=== PATIENT | male | born 1960 | race Caucasian/White ===

== ENCOUNTER 2022-11-24 07:38 | Outpatient (REF) | payer OTHER, SELFPAY ==
[2022-11-24 11:31] LABS: Appearance Urine Clear; Color Urine Yellow; Glucose Urine UA Negative (Negative); Leukocyte Esterase Urine Negative (Negative); Nitrite Urine Negative (Negative); Urine Blood Negative (Negative); Urine Ketones Negative (Negative); Urine Protein Negative (Neg-Trace)
[2022-11-24 11:34] LABS: Bacteria Urine None Seen (None Seen); Hyaline Casts Urine 0-2 /LPF (0-2); RBC Urine 0-2 /HPF (0-2); Squamous Epithelial Cell Urine 0-2 /HPF (0-2); WBC Urine 0-5 /HPF (0-5)
[2022-11-24 11:39] LABS: MANUAL DIFF FLAG NO
[2022-11-24 11:57] LABS: Basophils Percent Auto 0.8 % (0-2); Eosinophils Absolute Auto 0.6 X10*3/uL (0.0-0.4); Eosinophils Percent Auto 11.2 % (0-4); Hematocrit 43.2 % (42.0-52.0); Hemoglobin 14.4 g/dl (14.0-18.0); Lymphocytes Absolute Auto 1.2 X10*3/uL (1.2-4.9); Lymphocytes Percent Auto 24.3 % (20-40); Mean Corpuscular HGB Conc 33.3 g/dl (31.0-36.0); Mean Corpuscular Hemoglobin 30.6 pg (27.0-33.0); Mean Corpuscular Volume 91.7 fL (80.0-98.0); Mean Platelet Volume 10.8 fL (9.4-12.4); Monocytes Absolute Auto 0.4 X10*3/uL (0.1-1.2); Monocytes Percent Auto 8.7 % (2-11); Neutrophils Absolute Auto 2.7 x10*3/uL (2.0-8.3); Platelet Count 233 X10*3/uL (160-400); Red Blood Count 4.71 X10*6/uL (4.60-5.80); Red Cell Distribution Width 12.8 % (11.0-16.0); White Blood Count 4.9 X10*3/uL (4.8-10.8)
[2022-11-24 12:16] LABS: Alanine Aminotransferase 18 U/L (0-40); Albumin Level 3.9 g/dL (3.5-5.0); Alkaline Phosphatase 90 U/L (39-117); Anion Gap 12 (12-20); Aspartate Amino Transferase 23 U/L (5-37); Bilirubin Total 0.8 mg/dL (0.0-1.0); Blood Urea Nitrogen 12 mg/dL (9-16); Carbon Dioxide 28 mmol/L (22-29); Chloride 106 mmol/L (96-108); Cholesterol 195 mg/dL; Estimated Glomerular Filt Rate > 60; Glucose Fasting 95 mg/dL (60-99); HDL Cholesterol 42 mg/dL; LDL Cholesterol Calculated 128 mg/dl; Potassium 4.5 mmol/L (3.3-5.1); Sodium 141 mmol/L (135-145); Total Protein 6.3 g/dL (6.5-8.0); Triglycerides 128 mg/dL
[2022-11-24 12:37] LABS: PSA,Total (Free>4and<10) 1.04 ng/mL (0.00-4.00); Thyroid Stimulating Hormone 1.15 uIU/mL (0.32-4.0); Vitamin D 25-OH Total 26.4 ng/mL (>30)
== END 2022-11-24 07:39 | disposition home or self-care (01) ==
LOC: HO.HMGCLDS 07:38
PROVIDERS: PCP Internal Medicine; Visit Provider Internal Medicine
DX: Z00.00 Encounter for general adult medical examination without abnormal findings (principal); Z12.5 Encounter for screening for malignant neoplasm of prostate; E78.1 Pure hyperglyceridemia; E55.9 Vitamin D deficiency, unspecified; I35.9 Nonrheumatic aortic valve disorder, unspecified
CPT/HCPCS: 36415; 80053; 80061; 81001; 82306; 84153; 84443; 85025

== ENCOUNTER 2022-12-29 08:03 | Outpatient (REF) | payer OTHER, SELFPAY | END 2022-12-29 08:04 | disposition home or self-care (01) | LOC: HO.SH 08:03 | PROVIDERS: Visit Provider Internal Medicine | DX: H93.293 Other abnormal auditory perceptions, bilateral (principal); H93.13 Tinnitus, bilateral | CPT/HCPCS: 92552; 92556; 92567; 92588; 92700 ==

== ENCOUNTER 2023-08-16 11:16 | Outpatient (AMB) | payer OTHER, SELFPAY ==
--- NOTE | 2023-08-16 11:29 | MHC.OFFVIS ---
Intake Vital Signs 08/16/23 11:31 Height 6 ft 1 in Weight 218 lb BMI 28.8 BP 126/71 Blood Pressure Location Lt brachial Position Sitting Pulse 77 Intake Visit Reasons: 12.01.22 [place] Screening Intake Note: Patient new consult for pre colonoscopy screening. Patient denies any GI issues. Scallop Raker Required: No Accompanied by: Self / Same As Patient Allergies No Known Allergies [No Known Allergies*] Allergy (Verified 08/16/23 11:28) Medication List - Last Reconciled 08/16/23 by Dolores Camarena PA-C escitalopram oxalate 20 mg PO DAILY losartan 25 mg PO DAILY HPI HPI Comments History of Present Illness Details A 63 y/o male 10 year screening colon bowels ok appetite good Follows with annually [facility]- Bicuspid valve- no issues- BP meds- No nausea, vomiting, hematemesis, hematochezia, fever or chills. No headaches dizziness cough or chest pain PFSH Family History (Updated 08/16/23 @ 12:01 by Dolores Camarena PA-C) Unknown No problems noted. Social History (Updated 08/16/23 @ 12:03 by Dolores Camarena PA-C) Household Members Other:: 3 kids Alcohol intake: current Patient Tobacco Use Status: Never used Tobacco Current occupation: Musician Review of Systems Const All systems reviewed & are unremarkable except as noted in HPI and below Card Denies chest pain, Denies dyspnea and Denies dyspnea on exertion Resp Denies dyspnea and Denies dyspnea on exertion GI Denies abdominal pain, Denies heartburn, Denies nausea and Denies vomiting Physical Exam Vital Signs: Last Vital Signs Pulse 77 08/16/23 11:31 BP 126/71 08/16/23 11:31 BMI result Body Mass Index 28.8 Const General: cooperative, healthy appearing, comfortable and no acute distress Orientation/consciousness: patient oriented x3 Limitations: no limitations Eyes General: appearance normal, both eyes and all related structures Sclerae: sclerae normal Resp Effort & Inspection: normal respiratory effort and able to speak in complete sentences Auscultation: clear to auscultation bilaterally, no rales, no rhonchi and no wheezes Cardio Rate: regular rate Rhythm: regular rhythm Heart sounds: S1 normal heart sound present, S2 normal heart sound present and Murmur heart sound present GI Palpation (GI): Soft to palpation and nontender Auscultation: normal bowel sounds Skin General skin exam: no rashes or lesions noted Neuro General: patient oriented x3 Extrem General: Yes full ROM Psych Appearance: grossly normal Mental Status: mental status grossly normal Speech and movement: Normal speech and movement present Affect: normal affect Attitude: cooperative Thought process: Normal thought process present Thought content: Normal thought content present Assessment & Plan Assessment & Plan (1) Encounter for screening colonoscopy: Code(s): Z12.11 - Encounter for screening for malignant neoplasm of colon Plan: Screening colonoscopy MiraLax Gatorade prep Discussed procedure, rare risks, need for escorted due to anesthesia Plan Screening colonoscopy MiraLax Gatorade prep Orders: Orders Colonoscopy - GI Use Only Today Z12.11 - Encounter for screening for malignant neoplasm of colon Medications: New bisacodyl (Dulcolax (bisacodyl)) Day before procedure, prep day Take 4 tablets by mouth upon awakening followed by large glass of water 20 mg (4 x 5 mg) PO ONCE 1 day 4 tabs 0RF colonoscopy prep Z12.11 - Encounter for screening for malignant neoplasm of colon polyethylene glycol 3350 (Miralax) Take as directed by mouth the day before your procedure. 238 grams PO ONCE 1 day PRN 238 grams 0RF laxative effect Patient Instructions: 63-year-old Gent referred for 10 year screening colonoscopy he has no GI complaints Will schedule colon screening MG prep literature given Opportunity for questions answered to satisfaction Encouraged to call questions or concerns Coding Level of Care Code New Pt Level 3 (02171) Diagnoses Encounter for screening colonoscopy Z12.11 Time Spent (min) 30
[2023-08-16 11:31] VITALS: BP 126/71; PULSE 77; BMI 28.8
== END 2023-08-16 12:52 | disposition home or self-care (01) ==
PROVIDERS: PCP Internal Medicine; Visit Provider Physician Assistant
DX: Z12.11 Encounter for screening for malignant neoplasm of colon (principal); Z01.818 Encounter for other preprocedural examination
CPT/HCPCS: 99203

== ENCOUNTER → 2023-08-16 11:16 | Outpatient (BNVA) | payer OTHER, SELFPAY | PROVIDERS: PCP Internal Medicine; Visit Provider Physician Assistant ==

== ENCOUNTER 2024-03-01 09:38 | Day surgery (SDC) | payer OTHER, SELFPAY ==
[2024-02-29 07:22] VITALS: BMI 28.8
--- NOTE | 2024-02-29 08:25 | HO.ANESPROP2 ---
Documented by User: Gini Haider NP 02/29/24 08:27 HPI - Anesthesia Eval Consult details Narrative: 63yo M for Colonoscopy [facility] Active Problems Active Problems: All Active Problems Encounter for screening colonoscopy (Acute) Past Medical History Medical History (Updated 03/01/24 @ 10:04 by Alida Mercado MD) Depression HTN (hypertension) Family History Family History (Updated 08/16/23 @ 12:01 by Dolores Camarena PA-C) Unknown No problems noted. Surgical History Surgical History (Updated 03/01/24 @ 09:55 by Serenity Ho RN) Hx of hernia repair Hx of colonoscopy Social History Social History (Updated 08/16/23 @ 12:03 by Dolores Camarena PA-C) Household Members Other:: 3 kids Alcohol intake: current Alcohol intake frequency: holidays/special occasions only Patient Tobacco Use Status: Never used Tobacco Are you DNR?: No Advance Directives: No Advance Directives Information Provided: Yes Recently lost weight without trying: No Nutrition Risks: No Nutritional Risk Current occupation: [employer] Allergies Allergy/AdvReac Type Severity Reaction Status Date / Time No Known Allergies Allergy Verified 08/16/23 11:28 [No Known Allergies*] Home Medications ?Medication ?Instructions ?Recorded ?Confirmed ?Last Taken ?Type escitalopram oxalate 20 mg tablet 20 mg PO DAILY 08/16/23 02/29/24 History losartan 25 mg tablet 25 mg PO DAILY 08/16/23 02/29/24 History Exam Height,Weight and Vital Signs: Height 6 ft 1 in Weight 98.883 kg Assessment and Plan Assessment Anesthesia Assessment: Chart Reviewed Documented by User: Alida Mercado MD 03/01/24 10:06 [facility] Active Problems Active Problems: All Active Problems Encounter for screening colonoscopy (Acute) bicuspid aortic valve, being monitored HTN Depression Past Medical History Medical History (Updated 03/01/24 @ 10:04 by Alida Mercado MD) Depression HTN (hypertension) Family History Family History (Updated 08/16/23 @ 12:01 by Dolores Camarena PA-C) Unknown No problems noted. Surgical History Surgical History (Updated 03/01/24 @ 09:55 by Serenity Ho RN) Hx of hernia repair Hx of colonoscopy Social History Social History (Updated 08/16/23 @ 12:03 by Dolores Camarena PA-C) Household Members Other:: 3 kids Alcohol intake: current Alcohol intake frequency: holidays/special occasions only Patient Tobacco Use Status: Never used Tobacco Are you DNR?: No Advance Directives: No Advance Directives Information Provided: Yes Recently lost weight without trying: No Nutrition Risks: No Nutritional Risk Current occupation: [employer] Allergies Allergy/AdvReac Type Severity Reaction Status Date / Time No Known Allergies Allergy Verified 08/16/23 11:28 [No Known Allergies*] Home Medications ?Medication ?Instructions ?Recorded ?Confirmed ?Last Taken ?Type escitalopram oxalate 20 mg tablet 20 mg PO DAILY 08/16/23 02/29/24 History losartan 25 mg tablet 25 mg PO DAILY 08/16/23 02/29/24 History
[2024-03-01] VITALS (7 sets, daily range): BP systolic 110–139; BP diastolic 61–82; PULSE 58–74; RESP 15–19; TEMP 36.1–36.4; O2SAT 96–98; BMI 30.1
--- NOTE | 2024-03-01 09:38 | MHC.SHP ---
Pre-Procedural Eval Section A - 24 Hr Update-Section A only Date of Service: 03/01/24 Section B - Complete if H&P > 30 days Chief Complaint: Encounter for screening for malignant neoplasm of Relevant Family History (Specify if Yes): No Relevant Social History: None Present Medications: see Short Stay Collaborative assessment Medical History: Significant History (Depression HTN (hypertension)) History of Previous Operations: Relevant previous surgery/procedure and date(s) ( Hx of hernia repair Hx of colonoscopy) Allergies: Allergies Allergy/AdvReac Type Severity Reaction Status Date / Time No Known Allergies Allergy Verified 08/16/23 11:28 [No Known Allergies*] Review of Systems Sugical H&P ROS: Negative: Constitution, Cardiovascular, Respiratory, Neurological, Psychiatric, Hem-Onc, Allergic/Immunologic, Gastrointestinal, Genitourinary, Musculoskeletal, Integumentary, Endocrine and Eyes/Ears/Nose/Throat Exam Surgical H&P Exam: Normal: HEENT, Normal: Heart, Normal: Lungs, Normal: Extremities, Normal: Abdomen, Normal: Skin and Normal: Neurological Plan Diagnosis/Plan: Unchanged I have reviewed the history and physical and performed a pertinent physical examination on my patient. No changes have occurred unless specified. Time Spent With Patient Time: Total time managing care of this patient today ____ minutes.
[2024-03-01] MEDS: Lactated Ringers 1,000 ML 100 ML IVCONT (10:07)
--- NOTE | 2024-03-01 10:12 | HO.OPN-COLON ---
Colonoscopy Operative Note Operative Note Date of Service: 03/01/24 Narrative: Operative Information Procedure Description: Colonoscopy Indication: screening Anesthesia: MAC COLONOSCOPY Instrument: Olympus variable stiffness pediatric scope 190L Colonoscopy Monitoring: Vital signs and clinical assessment, continuous EKG monitoring, Pulse oximetry, Carbon Dioxide monitoring and blood pressure monitoring were done throughout the procedure. Colon withdrawal time was 8 minutes. Procedure: The patient was placed in the left lateral decubitis position and pre-procedure medications were administered. After a digital rectal examination of the ano-rectum, the video colonoscope was inserted into the rectum and advanced through the colon to the cecum/TI. The colonoscope was slowly withdrawn in a retrograde panoramic fashion and the colon mucosa was carefully examined including a retroflexed view of the rectum. Findings and interventions are described below. Procedure Difficulty: moderate, pressure applied Findings: Terminal Ileum-normal Cecum: 5-7 mm sessile polyp removed with cold snare Ascending Colon: normal Transverse Colon -normal Descending Colon:normal Sigmoid Colon: moderate severe diverticulosis Rectum: Retroflexion with small internal hemorrhoids seen, grade I Anorectum - normal Intervention: cold snare Colon preparation: [place] Bowel Preparation Scale Right colon; 1-2 Transverse colon: 2 Left colon; 2 (0 = Unprepared colon segment with mucosa not seen due to solid stool that cannot be cleared. 1 = Portion of mucosa of the colon segment seen, but other areas of the colon segment not well seen due to staining, residual stool and/or opaque liquid. 2 = Minor amount of residual staining, small fragments of stool and/or opaque liquid, but mucosa of colon segment seen well. 3 = Entire mucosa of colon segment seen well with no residual staining, small fragments of stool or opaque liquid) Impression and Post Procedure Diagnosis: diverticulosis colon polyp internal hemorrhoids Plan: High fiber diet leaflet Avoid straining at stool, epsom salts and sitz bath, anusol supps or cream Repeat Colonoscopy in 5 years due to polyp and fair prep on right or earlier if clinically indicated - next time consider using adult scope Above findings were reviewed with the patient and relevant handouts were provided if indicated.
== END 2024-03-01 11:58 | disposition home or self-care (01) ==
PROVIDERS: PCP Internal Medicine; Visit Provider Internal Medicine Gastroenterology
PROC: 0DJD8ZZ Inspection of Lower Intestinal Tract, Via Natural or Artificial Opening Endoscopic (ICD-10-PCS; CPT 45378; principal; 2024-03-01 12:00)
DX: Z12.11 Encounter for screening for malignant neoplasm of colon (principal); K63.5 Polyp of colon; K57.30 Diverticulosis of large intestine without perforation or abscess without bleeding; K64.0 First degree hemorrhoids; I10 Essential (primary) hypertension
CPT/HCPCS: 45385; 88305; J2250; J2704

== ENCOUNTER → 2024-03-01 09:38 | Outpatient (BNV) | payer OTHER, SELFPAY | PROVIDERS: PCP Internal Medicine; Visit Provider Internal Medicine Gastroenterology | DX: Z12.11 Encounter for screening for malignant neoplasm of colon (principal); K63.5 Polyp of colon; K57.30 Diverticulosis of large intestine without perforation or abscess without bleeding; K64.0 First degree hemorrhoids | CPT/HCPCS: 45385 ==

== ENCOUNTER 2024-03-15 10:15 | Outpatient (AMB) | payer OTHER, SELFPAY ==
--- NOTE | 2024-03-15 10:33 | MHC.OFFVIS ---
Vital Signs 03/15/24 10:39 Height 6 ft 1 in Weight 230 lb 2.601 oz BMI 30.4 BP 128/68 Blood Pressure Location Lt brachial Position Sitting Pulse 70 Intake Visit Reasons: S/p colon [place] Intake Note: Patient is seen in office for post op assessment post colonoscopy. Pt c/o: denies any concerns at the time of visit Territory Account Executive Required: No Accompanied by: Self / Same As Patient Allergies No Known Allergies [No Known Allergies*] Allergy (Verified 03/15/24 10:40) HPI HPI S/p colon Johnson: Details: LAST VISIT: SEEN BY NELIDA MCGHEE (1) Encounter for screening colonoscopy: Code(s): Z12.11 - Encounter for screening for malignant neoplasm of colon Plan: Screening colonoscopy MiraLax Gatorade prep Discussed procedure, rare risks, need for escorted due to anesthesia Plan Screening colonoscopy MiraLax Gatorade prep COLONOSCOPY: Findings: Terminal Ileum-normal Cecum: 5-7 mm sessile polyp removed with cold snare Ascending Colon: normal Transverse Colon -normal Descending Colon:normal Sigmoid Colon: moderate severe diverticulosis Rectum: Retroflexion with small internal hemorrhoids seen, grade I Anorectum - normal Intervention: cold snare Colon preparation: [place] Bowel Preparation Scale Right colon; 1-2 Transverse colon: 2 Left colon; 2 (0 = Unprepared colon segment with mucosa not seen due to solid stool that cannot be cleared. 1 = Portion of mucosa of the colon segment seen, but other areas of the colon segment not well seen due to staining, residual stool and/or opaque liquid. 2 = Minor amount of residual staining, small fragments of stool and/or opaque liquid, but mucosa of colon segment seen well. 3 = Entire mucosa of colon segment seen well with no residual staining, small fragments of stool or opaque liquid) Impression and Post Procedure Diagnosis: diverticulosis colon polyp internal hemorrhoids Plan: High fiber diet leaflet Avoid straining at stool, epsom salts and sitz bath, anusol supps or cream Repeat Colonoscopy in 5 years due to polyp and fair prep on right or earlier if clinically indicated - next time consider using adult scope PATHOLOGY Diagnosis Cecum, polypectomy: Tissue did not survive processing TODAY'S VISIT Patient previously seen by Ryan Mcghee for pre colonoscopy screening. Recently had colonoscopy and here today for follow-up. Patient denies any ill effects from the prep, anesthesia or procedure itself. Patient had suboptimal prep and colonoscopy was recommended to be repeated in 5 years. Patient denies melena, hematochezia, unintentional weight loss or ribbon like stools. Moderate diverticulosis found in sigmoid colon, small internal hemorrhoids grade 1 seen. Patient denies any GI concerning issues today. [facility] Medical History (Updated 03/15/24 @ 11:03 by Lilly Dallas [facility]) Diverticulosis Depression HTN (hypertension) Surgical History Hx of hernia repair Hx of colonoscopy Family History Unknown No problems noted. Social History Household Members Other:: 3 kids Alcohol intake: current Alcohol intake frequency: holidays/special occasions only Patient Tobacco Use Status: Never used Tobacco Current occupation: Musician Review of Systems Const Denies weight gain and Denies weight loss ENT Reports no additional complaints, Denies dysphagia and Denies odynophagia Card Reports no additional complaints Resp Reports no additional complaints GI Denies abdominal pain, Denies belching, Denies melena, Denies bloating, Denies change in bowel habits, Denies dysphagia, Denies excessive flatus, Denies dyspepsia, Denies heartburn, Denies diarrhea, Denies loose stools, Denies nausea, Denies odynophagia and Denies vomiting Reports no additional complaints Musc Reports no additional complaints Neuro Reports no additional complaints Psych Reports no additional complaints Endo Reports no additional complaints Physical Exam Vital Signs: Last Vital Signs Pulse 70 03/15/24 10:39 BP 128/68 03/15/24 10:39 BMI result Body Mass Index 30.4 Const General: healthy appearing and no acute distress Nutritional Appearance: obese Orientation/consciousness: patient oriented x3 Resp Effort & Inspection: normal respiratory effort, able to speak in complete sentences, no tracheal deviation and symmetric chest movement Auscultation: clear to auscultation bilaterally Cardio Rate: regular rate GI Inspection: Yes normal to inspection, No distended and Yes obesity Auscultation: normal bowel sounds General: Yes no CVA tenderness Back/Spine/Pelvis Back: no CVA tenderness Skin General skin exam: elasticity normal, turgor normal and dry skin Neuro General: patient oriented x3 Psych Appearance: grossly normal Mental Status: mental status grossly normal Assessment & Plan Assessment & Plan (1) Diverticulosis: Code(s): K57.90 - Diverticulosis of intestine, part unspecified, without perforation or abscess without bleeding Category: Medical (2) Hemorrhoids without complication: Code(s): K64.9 - Unspecified hemorrhoids (3) Status post colonoscopy: Code(s): Z98.890 - Other specified postprocedural states Plan Colonoscopy results discussed with patient. Patient reports that he has no issue after procedure. Discussed with patient high-fiber diet. List of food high in fiber given to patient. Patient was encouraged to start taking probiotic as well. Patient will increase fluid intake and activity to promote better bowel motility. Script for Proctosol given just in case he will need it. Patient will follow-up in our office on as needed basis. Colorectal screening will be repeated in 5 years, sooner if clinically necessary. Patient is agreeable to this plan and verbalizes understanding of instructions. He was given the opportunity to ask questions and all questions answered. Thank you for allowing me to participate in his care Medications: New hydrocortisone 2.5% (Proctosol HC) 1 appl [place] BID-QID PRN 30 grams 2RF hemorrhoids K64.9 - Unspecified hemorrhoids Coding Level of Care Code Est Pt Level 3 (34088) Diagnoses Diverticulosis K57.90 Hemorrhoids without complication K64.9 Status post colonoscopy Z98.890 Time Spent (min) 30 Comment 20 minutes spent with patient and additional 10 minutes spent reviewing his records
[2024-03-15 10:39] VITALS: BP 128/68; PULSE 70; BMI 30.4
== END 2024-03-15 11:31 | disposition home or self-care (01) ==
PROVIDERS: PCP Internal Medicine; Visit Provider Physician Assistant
DX: K57.90 Diverticulosis of intestine, part unspecified, without perforation or abscess without bleeding (principal); K64.9 Unspecified hemorrhoids; Z98.890 Other specified postprocedural states
CPT/HCPCS: 99213

== ENCOUNTER → 2024-03-15 10:15 | Outpatient (BNVA) | payer OTHER, SELFPAY | PROVIDERS: PCP Internal Medicine; Visit Provider Physician Assistant ==

== ENCOUNTER 2025-01-09 15:02 | Outpatient (AMB) | payer OTHER, SELFPAY ==
--- NOTE | 2025-01-09 15:05 | A.OFFPC_ITS ---
Vital Signs 01/09/25 15:09 Height 6 ft 0.5 in Weight 232 lb BMI 31.0 BP 115/62 Blood Pressure Location Rt brachial Pulse 85 Pulse Source Pulse Oximeter Temp 97.5 F Pulse Oximetry (%) 97 Intake Visit Reasons: physical Intake Note: painful tennis elbow, would like to talk about decreasing his anti depresent Allergies No Known Allergies [No Known Allergies*] Allergy (Verified 01/09/25 15:24) Medication List - Last Reconciled 01/09/25 by Queenie Casanova PA-C albuterol sulfate 90 mcg/actuation 2 puffs inhalation QID alprazolam 1 mg PO BID atorvastatin (Lipitor) 20 mg PO QPM cholecalciferol (vitamin D3) 50 mcg PO DAILY escitalopram oxalate 20 mg PO DAILY hydrocortisone 2.5% (Proctosol HC) 1 appl [place] BID-QID PRN losartan 25 mg PO DAILY PFSH Medical History Annual physical exam Dry mouth Cold induced bronchospasm Varicella zoster Spinal stenosis Degenerative disc disease, lumbar Migraine headache Anxiety Aortic valve disease Diverticulosis Depression HTN (hypertension) Surgical History Hx of hernia repair Hx of colonoscopy (~05/29/24) Family History Unknown No problems noted. Social History Household Members Other:: 3 kids Alcohol intake: current Alcohol intake frequency: holidays/special occasions only Patient Tobacco Use Status: Never used Tobacco Current occupation: Musician Questionnaire PHQ-9 Over the last 2 weeks, how often have you been bothered by any of the following problems? 1. Little interest or pleasure in doing things: not at all 2. Feeling down, depressed, or hopeless: several days 3. Trouble falling or staying asleep, or sleeping too much: not at all 4. Feeling tired or having little energy: several days 5. Poor appetite or overeating: not at all 6. Feeling bad about yourself - or that you are a failure or have let yourself or your family down: more than half the days 7. Trouble concentrating on things, such as reading the newspaper or watching television: several days 8. Moving or speaking so slowly that other people could have noticed. Or the opposite - being so fidgety or restless that you have been moving around a lot more than usual: not at all 9. Thoughts that you would be better off or of hurting yourself in some way: several days Total score: 6 Depression Screening Interpretation: Positive Depression Screening Follow-up: Existing condition and Community Mental Health Worker F/U Depression Screening Done: Yes 01841 - PHQ-9 Billing: Yes Source: Developed by Drs. Jonah Ascencio, Esther Humphreys, Trav Pena and colleagues, with an educational guilherme from [employer]. Thrive Questionnaire Date Thrive assessed: 01/09/25 I am a: Patient What is your living situation today?: I have a steady place to live Within the past 12 months, did the food you bought not last and you didn't have the money to get more?: Never true Within the past 12 months, did you worry whether your food would run out before you got money to buy more?: Never true Do you have trouble paying for medicines?: No Do you have trouble getting transportation to medical appointments?: No Do you have trouble paying your heating and electricity bill?: No Do you have trouble taking care of your child, family member or friend?: No Do you have trouble with day-to-day activities such as bathing, preparing meals, shopping, managing finances, etc.?: No Are you currently unemployed and looking for a job?: No Are you interested in more education?: Yes Please select the resources that you would like help with: Daily support Currently or been in a relationship where the following occur: No concerns reported THRIVE Score: 0 AUDIT C Alcohol Use Questionnaire (AUDIT-C) 1. How often do you have a drink containing alcohol?: 4 or more times a week 2. How many drinks containing alcohol do you have on a typical day when you are drinking?: 3 or 4 3. How often do you have six or more drinks on one occasion?: Never Total Score: 5 Score Reviewed/Action Taken: Yes (pt being referred) OREN-7 AMB Questionnaire OREN-7 Feeling nervous, anxious, or on edge: 1 = Several days Not being able to stop or control worryin = Several days Worrying too much about different things: 1 = Several days Trouble relaxin = Several days Being so restless that it is hard to sit still: 0 = Not at all Becoming easily annoyed or irritable: 1 = Several days Feeling afraid as if something awful might happen: 1 = Several days Total OREN-7 score (0-4 normal; 5-9 mild; 10-14 moderate; 15-21 severe): 6 Source: Developed by Drs. Jonah Ascencio, Esther Humphreys, Trav Pena and colleagues, with an educational guilherme from [employer]. OREN-7 Assessment Billing OREN-7 Assessment Tool: OREN-7 Assessment 57291 Physical exam (Primary Care) Vital Signs: Last Vital Signs Temp 97.5 F 01/09/25 15:09 Pulse 85 01/09/25 15:09 BP 115/62 01/09/25 15:09 Pulse Ox 97 01/09/25 15:09 Care Plan Goal for BP management: <130/80 at goal BMI result Body Mass Index 31.0 BMI Assessment/Plan discussion: High BMI High, discussed plan: lifestyle, weight reduction, dietary, physical activity and alcohol moderation Tobacco/Smoking Status: Tobacco use Status Patient Tobacco Use Status Never used Tobacco 01/09/25 15:12 Depression Screening Interpretation: Positive Depression Screening Follow-up: Existing condition and Community Mental Health Worker F/U Currently or been in a relationship where the following occur: No concerns repo rted Coding Level of Care Code New Pt Prev Care 40-64y(81877) Diagnoses Anxiety F41.9 Depression F32.A HTN (hypertension) I10 Diverticulosis K57.90 Aortic valve disease I35.9 Dry mouth R68.2 Annual physical exam Z00.00 Additional Codes PHQ-9 - 99442 - PHQ-9 Billing: Yes ([id number]) OREN-7 Assessment Billing - OREN-7 Assessment Tool: OREN-7 Assessment 94224 ([id number]) Assessment & Plan Assessment & Plan (1) Anxiety: Code(s): F41.9 - Anxiety disorder, unspecified Category: Medical Plan: Patient currently on escitalopram 20 mg daily. Reports he is having dry mouth and is concerned that this may be related to this. Also has a prescription for Xanax 1 mg p.o. b.i.d. as needed although patient has not utilize this in many years. He denies any SI or HI at this time although has a PHQ score of 6. He was concerned that the escitalopram is causing dry mouth and he was enquiring about possibly decreasing the amount of medication he is on. Although due to his anxiety and depression his PHQ score I explained to him that I will have an [facility] outpatient psychiatry consult placed and they will make recommendations and we will follow their recommendations. Patient is agreeable to this. Referral placed at this time. (2) Depression: Code(s): F32.A - Depression, unspecified Category: Medical Plan: Patient currently on escitalopram 20 mg daily. Reports he is having dry mouth and is concerned that this may be related to this. Also has a prescription for Xanax 1 mg p.o. b.i.d. as needed although patient has not utilize this in many years. He denies any SI or HI at this time although has a PHQ score of 6. He was concerned that the escitalopram is causing dry mouth and he was enquiring about possibly decreasing the amount of medication he is on. Although due to his anxiety and depression his PHQ score I explained to him that I will have an [facility] outpatient psychiatry consult placed and they will make recommendations and we will follow their recommendations. Patient is agreeable to this. Referral placed at this time. (3) HTN (hypertension): Code(s): I10 - Essential (primary) hypertension Category: Medical Plan: BP Goal <130/80 at go patient to continue losartan 25 mg daily. Patient to continue following up with Dr. Aguilar at [facility]. Patient to continue yearly echocardiograms and yearly CT scans of the chest as recommended by flight security specialist. Condition is chronic and stable continue to monitor. (4) Diverticulosis: Code(s): K57.90 - Diverticulosis of intestine, part unspecified, without perforation or abscess without bleeding Category: Medical Plan: This was found on colonoscopy on 05/29/2024. Condition is chronic and stable continue to monitor (5) Aortic valve disease: Comment: Bicuspid with a slightly dilated aorta Code(s): I35.9 - Nonrheumatic aortic valve disorder, unspecified Category: Medical Plan: Patient to continue following up with Dr. Aguilar at [facility]. Patient to continue yearly echocardiograms and yearly CT scans of the chest as recommended by flight security specialist. Condition is chronic and stable continue to monitor. (6) Dry mouth: Code(s): R68.2 - Dry mouth, unspecified Category: Medical Plan: May be a side effect from antidepressant although patient scoring 6 on PHQ score. Denies any SI or HI at this time. Will refer to [facility] outpatient psychiatry for medication recommendations. Condition is chronic and stable will continue to monitor (7) Annual physical exam: Code(s): Z00.00 - Encounter for general adult medical examination without abnormal findings Category: Medical Plan Plan Patient was informed and verbally consented to the use of an ambient scribe for clinic note documentation during this visit. 1. Essential Hypertension Controlled with losartan 25 mg daily. Regular blood pressure monitoring continues. 2. Anxiety Managed with escitalopram. Dry mouth discussed; referral for mental health evaluation to assess medication necessity or alternatives. 3. Aortic Valve Disease Continues with cardiology monitoring. On atorvastatin to address slight plaque buildup due to cardiac risk factors. Annual echocardiograms and CT scans are planned. 4. Migraine Self-managed according to previous treatment protocols. Monitor for changes in frequency or severity. 5. Dry Mouth Evaluation of medications contributing to dry mouth will be conducted by mental health services. 6. Chronic Back Pain Ongoing management with ckqo-euv-[id number] analgesics and physical therapy. Recommendations for maintaining physical activity levels while managing symptoms. 7. Tennis Elbow Advised continued use of non-prescription pain relief and physical therapy as needed. Monitor symptoms for any changes. 8. Diverticulosis Patient to continue under surveillance with a follow-up colonoscopy planned in five years in the absence of symptomatic changes. 9. Colonic Polyp Follow-up colonoscopy planned in five years. Continued monitoring for gastrointestinal symptoms advised. Discussion Notes During the appointment, I discussed with the patient the ongoing management of his chronic health conditions, particularly the cardiovascular health due to previous findings of aortic valve disease and slight coronary artery plaque buildup. I emphasized the importance of maintaining the current medications, including the recently initiated atorvastatin, and ensuring regular follow-up with his flight security specialist. We addressed his concerns regarding dry mouth potentially linked to escitalopram, and I suggested a referral to mental health services for reassessment of his anxiety management. Regular physical activity, including weight training, was encouraged, but I advised moderation to prevent exacerbation of his tennis elbow. The need for a repeat colonoscopy in five years due to previous findings of a polyp and diverticulosis was confirmed, and I reiterated the importance of regular dermatological checks due to a family history of melanoma. Consent was obtained for the proposed management strategies, and we planned a follow-up in six months to reassess his conditions and any interventions needed. Orders: Orders Hemoglobin A1c Today Z00.00 - Encounter for general adult medical examination without abnormal findings Referrals Psychiatry Outpatient Consultation Service F32.A - Depression, unspecified, F41.9 - Anxiety disorder, unspecified Patient Instructions: Patient Instructions - Continue all current medications as prescribed. - Follow up with flight security specialist for annual echocardiogram and CT scan. - Schedule mental health evaluation for medication assessment related to dry mouth. - Monitor and manage tennis elbow with Advil and physical therapy as tolerated. - Plan for a routine follow-up colonoscopy in five years unless symptoms warrant earlier assessment. - Maintain regular dermatological checks as scheduled with Dr. Mckya. - Engage in regular physical activity, ensuring moderation to prevent injury. - Follow up in six months to assess ongoing management of health conditions. - Seek medical attention if experiencing new or worsening symptoms. Scribe Plan - Not visible on output: History of Present Illness The patient is a 64-year-old male presenting for an annual physical examination and management of chronic health conditions, including aortic valve disease, hypertension, anxiety, and eczema. His aortic valve disease features a bicuspid valve with mild aortic dilation, necessitating consistent cardiac monitoring and treatment with atorvastatin. Hypertension is controlled with losartan 25 mg daily, and anxiety is managed with escitalopram 20 mg daily. Additional medical concerns include chronic back pain from lumbar disc disease and spinal stenosis, as well as migraines, wheezing with cold air exposure, and a history of shingles. Current issues include tennis elbow, suspected side effects from his anxiety medication causing dry mouth, and recently managed eczema with hydrocortisone. Recent changes include the initiation of Lipitor after a CT scan indicated slight plaque buildup. He has a past history of colonoscopy findings of a polyp and diverticulosis, for which follow-up is planned. Despite a history of family melanoma, his skin evaluations are clear as of recent examinations. Social History - Employment: Currently working from home - Family: with a 6-year-old. Actively involved in family care. - Exercise: Engages in regular exercise at [employer] and light weight training. - Substance Use: Regular alcohol consumption, averaging three drinks daily. - Dermatology Care: Regular skin checks due to family history of melanoma. Review of Systems - General: Reports dry mouth, potentially medication-related. - Musculoskeletal: Reports history of lumbar disc disease, spinal stenosis, and tennis elbow. - Cardiovascular: Denies chest pain or shortness of breath. - Respiratory: Denies dyspnea but reports wheezing with cold exposure. - Gastrointestinal: Reports history of colonic polyp and diverticulosis. - Neurological: Reports migraines. - Psychiatric: Reports anxiety managed with medication. Physical Exam Appearance: Alert. Oriented X3. No acute distress. Head: Normal external exam. Normocephalic. Atraumatic. Eyes: Pupils are equal, round, and reactive to light. Extraocular movements intact. Conjunctiva and sclera normal. Eyelids normal. Ears: External auditory canal normal. Tympanic membranes normal. Throat: Pharynx normal. Uvula midline. Moist mucous membranes. Neck: Normal inspection. Neck supple. Full range of motion. No adenopathy. No meningeal signs. No neck mass noted. Cardiovascular: Normal heart rate and rhythm. Heart sound normal. No murmurs noted. Pulses normal throughout. Respiratory: No respiratory distress. Painless inspiration. Breath sounds normal. No wheezes/rales/rhonchi noted. Chest nontender. No accessory muscle usage noted or decreased air movement noted. Abdomen: Soft and nontender. Bowel sounds normal in all 4 quadrants. No distention noted. No organomegaly noted. No visible injury noted. Back: Full range of motion noted. Skin: Skin warm and dry. Normal skin color. Normal skin turgor. No rashes/lesions/lacerations noted. Extremities: No lower extremity edema. Extremities exhibit normal range of motion. Extremities nontender. Tennis elbow noted. Neuro: Oriented X 3. No motor deficit. No sensory deficit. Reflexes normal. Results - Labs: Past cholesterol was 205 mg/dL, triglycerides 143 mg/dL, LDL 132 mg/dL. - Cardiac: Echocardiogram and CT scan revealing slight plaque buildup, bicuspid aortic valve with slight dilation. - Gastrointestinal: Previous colonoscopy showed one small polyp and diverticulosis.
[2025-01-09 15:09] VITALS: BP 115/62; PULSE 85; TEMP 36.4; O2SAT 97; BMI 31.0
--- OUTSIDE RECORDS SUMMARY | 2025-01-09 17:54 | XMS_ITS | Patient Health Record ---
Author Organization Jayden Chapman MD Address [address] [place], [place] [id number] Care Team Providers Care Registrar Museum Name Role Phone Jonah Cooper DO Primary Care Provider Unavail able Allergies No Known Allergies Reason For Referral No Information Medications Medication SIG (Take, Route, Frequency, Duration) Notes Start Date End Date Status Lexapro 20 MG 1 tablet Orally Once a day for 30 day(s) Active Losartan Potassium 25 MG 1 tablet Orally Once a day for 30 day(s) Active Amoxicillin-Pot Clavulanate 875-125 MG 1 tablet Orally every 12 hrs for 10 day(s) 01/04/2023 Active Plan Of Treatment No Information Insurance Providers Payer Name Payer Address Payer Phone Subscriber Number Group Number Insured Name Patient Relationship to Insured Coverage Start Date Coverage End Date [facility] [address] [facility] [id number] [facility] [id number] Sajan Nuñez Self - patient is the insured
== END 2025-01-09 15:42 | disposition home or self-care (01) ==
LOC: HO.HMCSH 15:02
PROVIDERS: PCP Internal Medicine; Visit Provider Physician Assistant Medical
DX: F41.9 Anxiety disorder, unspecified (principal); F32.A Depression, unspecified; I10 Essential (primary) hypertension; K57.90 Diverticulosis of intestine, part unspecified, without perforation or abscess without bleeding; I35.9 Nonrheumatic aortic valve disorder, unspecified; R68.2 Dry mouth, unspecified; Z00.00 Encounter for general adult medical examination without abnormal findings

== ENCOUNTER → 2025-01-09 15:02 | Outpatient (BNVA) | payer OTHER, SELFPAY | PROVIDERS: PCP Internal Medicine; Visit Provider Physician Assistant Medical | DX: Z00.00 Encounter for general adult medical examination without abnormal findings (principal); F41.9 Anxiety disorder, unspecified; F32.A Depression, unspecified; I10 Essential (primary) hypertension; K57.90 Diverticulosis of intestine, part unspecified, without perforation or abscess without bleeding; I35.9 Nonrheumatic aortic valve disorder, unspecified; R68.2 Dry mouth, unspecified; Z79.899 Other long term (current) drug therapy | CPT/HCPCS: 96127 ==

== ENCOUNTER 2025-02-08 10:11 | Outpatient (AMB) | payer OTHER, SELFPAY ==
--- NOTE | 2025-02-08 10:10 | MHC.OFFVISPS ---
Intake Intake Visit Reasons: consultation Atmospheric Physicist Required: No Allergies No Known Allergies [No Known Allergies*] Allergy (Verified 01/09/25 15:24) Medication List - Last Reconciled 02/08/25 by Betina Whittaker APRN albuterol sulfate 90 mcg/actuation 2 puffs inhalation QID alprazolam 1 mg PO BID atorvastatin (Lipitor) 20 mg PO QPM cholecalciferol (vitamin D3) 50 mcg PO DAILY escitalopram oxalate 20 mg PO DAILY hydrocortisone 2.5% (Proctosol HC) 1 appl [place] BID-QID PRN losartan 25 mg PO DAILY HPI- Psychiatric Chief Complaint: consultation HPI Narrative: Pt is referred by his PCP. Pt is currently prescribed escitalopram 20 mg daily. PHQ-9 score = 9 and his GAD7= 10. Pt reported experiencing dry mouth and attributes this to the escitalopram. He reports some sexual side effects as well. He is also prescribed Xanax 1 mg p.o. b.i.d. PRN, but pt notes he has not utilized this medication in years. Pt reports he is ambivalent about stopping lexapro but wants to consider. he reports although he has had depression and anxiety since early adulthood, he was never on medications until the Pandemic. In 2019 he had a and the start of the pandemic increased anxiety trremendously. The lexapro helped. He has utilized therapy in the past to mange the symptoms and still has a therapist he sees weekly. Pt reports he enjoys his home life, his marriage, his young son, his relationship with his 2 adult daughters from a previous marriage, and his work as a musician and artist. He reports a history of OCD symptoms which the lexapro relieved. He also reports a hx of seasonal depression where his energy and interest in activities is much lower in the winter. Past Psychiatric History: panic and anxiety started in college; oupt therpay since then; no IPLOC. meds start in 2019 during pandemic. Subjective Subjective Subjective Medication Compliance: Yes Side effects from medications: No Review of Systems Medical Review of Systems: unchanged Mental Status Exam Mental Status Exam Patient Appearance: Well Grooomed and Appropriate Patient Orientation: Person, Place, Time and Situation Level of Consciousness: Awake, Appropriate and Alert Patient Behavior: Appropriate, Talkative and Cooperative Mood Description: Calm Affect Description: Calm Patient Cognition Impaired: No Ability to Follow Directions: Good Speech Pattern: Clear and Appropriate Memory Description: Intact Hallucinations: None Delusions: Not Present Thought Process: Intact and Goal Oriented Thought Content: positive for Intact and positive for Goal Oriented Judgement: Good Assessment and Plan Assessment & Plan (1) Generalized anxiety disorder with panic attacks: Status: Acute Code(s): F41.1 - Generalized anxiety disorder; F41.0 - Panic disorder [episodic paroxysmal anxiety] (2) Dysthymia: Status: Acute Code(s): F34.1 - Dysthymic disorder Plan start vitamin B50 Complex take one daily or 3-4 times a week at least start magnesium supplement 200-400 mg daily consider reducing alcohol use to 2 drinks per day at most consider addition of wellbutrin if decide to reduce lexapro recommend a slow taper for example 20mg every other day and 10 mg every other day x 3 months and then 10mg daily for 3 months and then could even go down to 5mg daily x 1 months and then stop. retrun in 4 weeks to discuss further Medications: Refilled escitalopram oxalate 20 mg PO DAILY 90 tabs 1RF Counseling and coordination of Care Pt. Self Management counseling: Mod caffeine/ETOH intake, Nutrition education and improvement and Sleep hygiene Medication management counseling: Effectiveness, Side effects, Dosing range, Duration, Drug interaction and Adherence Diagnosis and Prognosis Counseling: Accuracy of diagnosis, Prognosis over time, Impact of diagnosis on life functions, Impact of family relationship, Problematic behaviors secondary to diagnosis and Adequacy of current interventions Details: I spent [] minutes reviewing the record, seeing the patient and documenting in the medical record. Counseling provided to the patient/caregiver as outlined below. Addressed patient/caregiver concerns regarding current medication regime including effective adherence. Addressed patient/caregiver concerns regarding diagnosis and prognosis including accuracy of diagnosis, prognosis over time, impact of diagnosis. Addressed patient/caregiver concerns regarding impact of recent stressors. [facility] Medical History (Updated 02/08/25 @ 12:57 by Betina Whittaker APRN) Retinal tear of left eye Annual physical exam Dry mouth Cold induced bronchospasm Varicella zoster Spinal stenosis Degenerative disc disease, lumbar Migraine headache Anxiety Aortic valve disease Diverticulosis Depression HTN (hypertension) Surgical History Hx of hernia repair Hx of colonoscopy (~05/29/24) Family History Unknown No problems noted. Social History Household Members Other:: 3 kids Alcohol intake: current Alcohol intake frequency: holidays/special occasions only Patient Tobacco Use Status: Never used Tobacco Current occupation: Musician Social History: lives with and 6 yr old son. Has 2 adult daughter with whom he is close. Has friends and family support. Father age 68 from melanoma. Mother age 92 alive and needs help. Pt is primary family caregiver. Substance History: THC, ETOH and psychedelics in teens and college. Uses ETOH now daily 3 drinks approximately. Trauma History: none known Coding Level of Care Code Psych Diag Eval w/Med ([id number]) Diagnoses Generalized anxiety disorder with panic attacks F41.1; F41.0 Dysthymia F34.1
== END 2025-02-08 11:28 | disposition home or self-care (01) ==
LOC: HO.HOP 10:11
PROVIDERS: PCP Internal Medicine; Visit Provider Clinical Nurse Specialist Psychiatric/Mental Health
DX: F41.1 Generalized anxiety disorder (principal); F41.0 Panic disorder [episodic paroxysmal anxiety]; F34.1 Dysthymic disorder
CPT/HCPCS: 90792

== ENCOUNTER → 2025-02-08 10:11 | Outpatient (BNVA) | payer OTHER, SELFPAY | PROVIDERS: PCP Internal Medicine; Visit Provider Clinical Nurse Specialist Psychiatric/Mental Health | DX: F41.1 Generalized anxiety disorder (principal); F41.0 Panic disorder [episodic paroxysmal anxiety]; F34.1 Dysthymic disorder; Z71.89 Other specified counseling | CPT/HCPCS: 90792 ==

== ENCOUNTER 2025-04-10 14:36 | Outpatient (AMB) | payer OTHER, SELFPAY ==
--- NOTE | 2025-04-10 14:29 | MHC.PC.OV ---
Intake Visit Reasons: Chest congestion, ? 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 Allergies No Known Allergies [No Known Allergies*] Allergy (Verified 04/10/25 15:19) Medication List - Last Reconciled 04/10/25 by Dano Clayton MD albuterol sulfate 90 mcg/actuation 2 puffs inhalation QID aspirin 81 mg PO DAILY atorvastatin (Lipitor) 20 mg PO QPM azithromycin take 500 mg today (day 1), then 250 mg for 4 days (days 2-5) PO cholecalciferol (vitamin D3) 50 mcg PO DAILY escitalopram oxalate 20 mg PO DAILY hydrocortisone 2.5% (Proctosol HC) 1 appl AR BID-QID PRN losartan 25 mg PO DAILY Tobacco use date assessed: 04/10/25 Fall risk assessment: No Falls in past year Last assessed Fall Risk: 04/10/25 Dental Screening Dental Screen Date: 04/10/25 Did you have a dental visit in the last 12 months?: Yes Did you have a dental problem in the last 6 months where you did not have access to dental care?: No Was dental information given to patient?: Patient has dentist HPI Chest congestion, ? bronchitis HPI Details 64 yr old male presents for a televisit. Complains of sore throat, sinus congestion and PND. No fevers or chills. Green mucus discharge PFSH Medical History Retinal tear of left eye Annual physical exam Dry mouth Cold induced bronchospasm Varicella zoster Spinal stenosis Degenerative disc disease, lumbar Migraine headache Anxiety Aortic valve disease Diverticulosis Depression HTN (hypertension) Surgical History Hx of hernia repair Hx of colonoscopy (~05/29/24) Family History Unknown No problems noted. Social History Household Members Other:: 3 kids Housing: House Alcohol intake: current Alcohol intake frequency: holidays/special occasions only Patient Tobacco Use Status: Never used Tobacco service: No Current occupational status: employed Current occupation: Musician Cognitive needs: No Hearing needs: No Vision needs: Yes (rx glasses) Questionnaire PHQ-9 Over the last 2 weeks, how often have you been bothered by any of the following problems? 1. Little interest or pleasure in doing things: not at all 2. Feeling down, depressed, or hopeless: several days 3. Trouble falling or staying asleep, or sleeping too much: not at all 4. Feeling tired or having little energy: several days 5. Poor appetite or overeating: not at all 6. Feeling bad about yourself - or that you are a failure or have let yourself or your family down: more than half the days 7. Trouble concentrating on things, such as reading the newspaper or watching television: several days 8. Moving or speaking so slowly that other people could have noticed. Or the opposite - being so fidgety or restless that you have been moving around a lot more than usual: not at all 9. Thoughts that you would be better off or of hurting yourself in some way: several days Total score: 6 Depression Screening Interpretation: Positive Depression Screening Follow-up: Existing condition and Community Mental Health Worker F/U Depression Screening Done: Yes 06509 - PHQ-9 Billing: Yes Source: Developed by Drs. Jonah Ascencio, Esther Humphreys, Trav Pena and colleagues, with an educational guilherme from [email or web address]. Thrive Questionnaire Date Thrive assessed: 01/09/25 I am a: Patient What is your living situation today?: I have a steady place to live Within the past 12 months, did the food you bought not last and you didn't have the money to get more?: Never true Within the past 12 months, did you worry whether your food would run out before you got money to buy more?: Never true Do you have trouble paying for medicines?: No Do you have trouble getting transportation to medical appointments?: No Do you have trouble paying your heating and electricity bill?: No Do you have trouble taking care of your child, family member or friend?: No Do you have trouble with day-to-day activities such as bathing, preparing meals, shopping, managing finances, etc.?: No Are you currently unemployed and looking for a job?: No Are you interested in more education?: Yes Please select the resources that you would like help with: Daily support Currently or been in a relationship where the following occur: No concerns reported THRIVE Score: 0 AUDIT C Alcohol Use Questionnaire (AUDIT-C) 1. How often do you have a drink containing alcohol?: Monthly or less 2. How many drinks containing alcohol do you have on a typical day when you are drinking?: 1 or 2 3. How often do you have six or more drinks on one occasion?: Never Total Score: 1 OREN-7 AMB Questionnaire OREN-7 Date OREN - 7 assessed: 01/09/25 Feeling nervous, anxious, or on edge: 1 = Several days Not being able to stop or control worryin = Several days Worrying too much about different things: 1 = Several days Trouble relaxin = Several days Being so restless that it is hard to sit still: 0 = Not at all Becoming easily annoyed or irritable: 1 = Several days Feeling afraid as if something awful might happen: 1 = Several days Total OREN-7 score (0-4 normal; 5-9 mild; 10-14 moderate; 15-21 severe): 6 Source: Developed by Drs. Jonah Ascencio, Esther Humphreys, Trav Pena and colleagues, with an educational guilherme from [email or web address]. OREN-7 Assessment Billing OREN-7 Assessment Tool: OREN-7 Assessment 63531 Physical exam (Primary Care) Tobacco/Smoking Status: Tobacco use Status Tobacco use date assessed 04/10/25 04/10/25 14:32 Patient Tobacco Use Status Never used Tobacco 04/10/25 14:32 PHQ-9: PHQ-9 Score PHQ-9: Total score 6 04/10/25 14:32 Depression Screening Interpretation: Positive Depression Screening Follow-up: Existing condition and Community Mental Health Worker F/U Thrive Assessment: Date of Thrive Assessment Date Thrive assessed 01/09/25 04/10/25 14:32 Currently or been in a relationship where the following occur: No concerns reported Telehealth Telehealth Telehealth Platform: Telephone Location of provider rendering services: practice address Location of patient: address on file Patient Identification confirmed using: Name, : Yes Telehealth method: voice only Patient verbally consented to treatment: Yes Patient verbally consented to billing insurance company: Yes Patient informed of any privacy concerns related to visit: Yes Minutes spent on Phone/Video with Pt.: 10 Coding Level of Care Code Tele Est Pt Level 3 (69484) Complex EM visit Add On G2211 Diagnoses Upper respiratory infection J06.9 Additional Codes OREN-7 Assessment Billing - OREN-7 Assessment Tool: OREN-7 Assessment 52433 ([id number]) PHQ-9 - 45187 - PHQ-9 Billing: Yes ([id number]) Assessment & Plan Assessment & Plan (1) Upper respiratory infection: Code(s): J06.9 - Acute upper respiratory infection, unspecified Plan: Antibiotics called in. If sx not better to follow up here. Medications: New azithromycin take 500 mg today (day 1), then 250 mg for 4 days (days 2-5) PO 6 tabs 0RF
== END 2025-04-10 15:27 | disposition home or self-care (01) ==
LOC: HO.HMCSH 14:36
PROVIDERS: PCP Internal Medicine; Visit Provider Internal Medicine
DX: J06.9 Acute upper respiratory infection, unspecified (principal)

== ENCOUNTER → 2025-04-10 14:36 | Outpatient (BNVA) | payer OTHER, SELFPAY | PROVIDERS: PCP Internal Medicine; Visit Provider Internal Medicine | DX: I10 Essential (primary) hypertension (principal); J06.9 Acute upper respiratory infection, unspecified | CPT/HCPCS: 96127 ==